=== PATIENT | female | born 1995 | race Caucasian/White ===

== ENCOUNTER 2018-04-21 19:00 | Emergency (ER) | END 2018-04-21 21:56 | disposition home or self-care (01) ==

== ENCOUNTER 2018-06-18 16:27 | Emergency (ER) | END 2018-06-18 19:05 | disposition home or self-care (01) ==

== ENCOUNTER 2018-10-22 13:47 | Inpatient (IN) | payer BC ==
[~2018-10-22] VITALS: Ht 160 cm; Wt 74.7 kg
[~2018-10-22 13:47] MED LIST: ACET500C5 PO; CEPH-443 PO; METO10TA92 PO; NITR-58 PO
--- NOTE | 2018-10-22 17:20 | HP ---
Date/Time of Note Date/Time of Note DATE: 10/22/18 TIME: 17:10 OB - History Hx of Present Free Text/Dictation 10/22/2018 : 1 Para: 0 Spontaneous : 0 Therapeutic : 0 Care: Limited Care Other Concerns: 23-year-old with IUP at 34 weeks and 5 days and care at outside facility presents with complaint of nausea and vomiting and weakness. She denies any leaking of fluid, vaginal bleeding or decreased movement. Patient was noted to have wandering baseline during monitoring during NST and for that reason patient was kept for 24-hour observation. heart tracing with intermittent wandering baseline with good variability and accelerations. She denies any complication during her course. Past Family/Social History * Past Medical, Surgical, Family and Obstetric Histories reviewed from chart. OB Admission Exam Physical Exam HEENT: WNL Lungs: Clear Abdomen: WNL Extremities: Normal Cervical Dilatation: None Effacement: 0% Station: -2 Membranes: Intact Heart Rate: 130's Accelerations: Accelerations Present (increased variability , wondering baseline noted down to the 80s with good variability and acceleration ) Varibility: Marked Contractions on Admission: >10 Minutes Apart Intensity: Mild OB Assessment/Plan Other Assessment: IUP at 21 weeks care at outside facility, will be obtained Nausea and vomiting,, resolved. Tolerated PO challenge. Denies any fever or chills or GI symptoms. Wandering baseline and heart tracing, with marked variability and acceleration baseline at times at 90s. But improved to 120s She will be kept for observation for 24 hours Will be monitored closely Consider obtaining her records Ultrasound for estimated weight, growth biophysical profile and, JEREMY CAPUTO MD Oct 22, 2018 17:20
[2018-10-22 17:49] VITALS: Ht 160 cm; Wt 74.7 kg
[2018-10-22] MEDS: LACTATED RINGER'S 1,000 ML IV SCH ×2 (19:04→22:08)
[2018-10-23] MEDS: LACTATED RINGER'S 1,000 ML IV SCH ×2 (05:57→11:37)
[2018-10-23] MEDS ORDERED: PRENATAL VITAMIN PO SCH (09:00)
[2018-10-23] MEDS ORDERED: FERROUS SULFATE (EC) 325 MG TAB PO SCH (09:00)
--- NOTE | 2018-10-23 19:10 | PD.PPDC ---
[employer] Discharge Instruction Diagnosis [id number] Final Diagnosis: Ltpxf4b IUP 34w4d Condition Gjeui3Ap Patient Condition: Wafkl7f Stable Diet Kbukc4Li Diet: Tsaqs9b Resume Regular Diet Activity/Restrictions [id number] Activity: Ggjem8u Normal Activity May Shower Follow-up Provider Information: f/u with her OB CATHERINE TRINIDAD MD Oct 23, 2018 19:10
== END 2018-10-23 20:00 | disposition home or self-care (01) | DRG 833 ==
LOC: L-D 13:47 → OBT 13:47 → L-D 16:00 → OBT 16:00 → L-D 16:44 → PP1 19:56
PROVIDERS: ADMIT Obstetrics & Gynecology Obstetrics; ATTEND Obstetrics & Gynecology Obstetrics
DX: O21.9 Vomiting of pregnancy, unspecified (principal); O26.893 Other specified pregnancy related conditions, third trimester; Z3A.34 34 weeks gestation of pregnancy
CPT/HCPCS: 76815; 76818; 80053; 81001; 85025; 87086; G0463; J7120

== ENCOUNTER 2018-12-31 23:40 | Emergency (ER) | payer BC ==
[~2018-12-31] VITALS: Ht 157.5 cm; Wt 63.7 kg
[2019-01-01 00:05] VITALS: Ht 157.5 cm; Wt 63.7 kg
[2019-01-01 01:51] VITALS: BP 112/56; PULSE 79; RESP 18
[2019-01-01] MEDS ORDERED: DIC250 PO (02:10)
[2019-01-01] MEDS ORDERED: ACET500C5 PO (02:10)
--- NOTE | 2019-01-01 02:14 | ERD ---
ER Documentation Chief Complaint Chief Complaint L breast pain/swelling, fever, chills, X 2 days. 4 wks HPI Patient is a 23-year-old female, presents the ER for concerns of left breast pain x2 days. Patient is currently breast-feeding her daughter who is 4 weeks old. Patient states that she is having chills and low-grade temperature, T-max of 100.1 Fahrenheit. Patient reports taking Tylenol for symptoms. Patient states her breast is feel full and tender. Patient denies any bleeding or discharge. Patient is currently pumping. Denies any chest pain, shortness of breath, left upper extremity pain, nausea, vomiting or LOC. ROS All systems reviewed and are negative except as per history of present illness. Medications Home Meds Active Scripts Acetaminophen* (Tylophen*) 500 Mg Capsule, 1 CAP PO Q6H PRN for PAIN AND OR ELEVATED TEMP, #20 CAP Prov:JOHNNIE LLOYD PA-C 01/01/19 Dicloxacillin Sodium* (Dynapen*) 250 Mg Cap, 500 MG PO QID for 10 Days, CAP Prov:JOHNNIE LLOYD PA-C 01/01/19 Allergies Allergies: Coded Allergies: No Known Allergies (Verified Allergy, Mild, 10/22/18) PMhx/Soc History of Surgery: Yes (ovarian sx) Anesthesia Reaction: No Hx Neurological Disorder: No Hx Respiratory Disorders: Yes (asthma) Hx Cardiac Disorders: No Hx Psychiatric Problems: No Hx Miscellaneous Medical Probl: No Hx Alcohol Use: No Hx Substance Use: No Hx Tobacco Use: No FmHx Family History: No diabetes Physical Exam Vitals Vital Signs Date Temp Pulse Resp B/P (MAP) Pulse Ox O2 O2 Flow FiO2 Time Delivery Rate 01/01/19 98.7 79 18 112/56 100 Room Air 01:51 (74) 01/01/19 97.8 86 18 99 00:05 Physical Exam GENERAL: Well-developed, well-nourished female. Appears in no acute distress. HEAD: Normocephalic, atraumatic. EYES: Pupils are equally reactive bilaterally. EOMs grossly intact. No conjunctival erythema. ENT: Moist mucous membranes. No uvula deviation. No kissing tonsils. NECK: Supple. No meningismus. Normal range of motion of the neck. LUNG: Clear to auscultation bilaterally. No rhonchi, wheezing, rales or coarse breath sounds. HEART: Regular rate and rhythm. No murmurs, rubs or gallops. L BREAST: No nipple discharge or bleeding. Tenderness and fullness noted in the 9:00 through 11 o'clock position. Mild erythema noted in this region as well. No streaking. EXTREMITIES: Equal pulses bilaterally. No peripheral clubbing, cyanosis or edema. No unilateral leg swelling. NEUROLOGIC: Alert and oriented. Moving all four extremities without any difficulty. Normal speech. Steady gait. SKIN: Normal color. Warm and dry. No rashes or lesions. Procedures/MDM MEDICAL DECISION MAKING: Patient is a 23-year-old female, currently breast-feeding her daughter, presents the ER for concerns of a left sided breast pain and low-grade fevers x1 days. Vital signs were reviewed. Patient is afebrile. Patient was not hypoxic. Patient was hemodynamically stable. Physical exam vitals are concerning for mastitis. Patient will be treated with an box. Patient advised to continue breast- feeding/pumping. Low suspicion for ACS, deep space infection, abscess formation, sepsis. Patient was nontoxic, [id number] prior to discharge. DISCHARGE: At this time, patient is stable for discharge and outpatient management. I have instructed the patient to follow-up with his/her primary care physician in 1-2 days. I have discussed with the patient the possibility of needing to see a specialist for further workup and imaging studies if symptoms persist. I have instructed the patient to promptly return to the ER for any new or worsening symptoms including increased pain, fever, nausea, vomiting, weakness or LOC. The patient and/or family expressed understanding of and agreement with this plan. All questions were answered. Home care instructions were provided. Disclaimer: Inadvertent spelling and grammatical errors are likely due to EHR/dictation software use and do not reflect on the overall quality of patient care. Also, please note that the electronic time recorded on this note does not necessarily reflect the actual time of the patient encounter. Departure Diagnosis: Primary Impression: Mastitis Condition: Fair Patient Instructions: Mastitis Referrals: COMM[facility]ITY CLIN[facility] YOU HAVE RECEIVED A MEDICAL SCREENING EXAM AND THE RESULTS INDICATE THAT YOU DO NOT HAVE A CONDITION THAT REQUIRES URGENT TREATMENT IN THE EMERGENCY DEPARTMENT. FURTHER EVALUATION AND TREATMENT OF YOUR CONDITION CAN WAIT UNTIL YOU ARE SEEN IN YOUR DOCTORS OFFICE WITHIN THE NEXT 1-2 DAYS. IT IS YOUR RESPONSIBILITY TO MAKE AN APPOINTMENT FOR FOLOW-UP CARE. IF YOU HAVE A PRIMARY DOCTOR --you should call your primary doctor and schedule an appointment IF YOU DO NOT HAVE A PRIMARY DOCTOR YOU CAN CALL OUR PHYSICIAN REFERRAL HOTLINE AT IF YOU CAN NOT AFFORD TO SEE A PHYSICIAN YOU CAN CHOSE FROM THE FOLLOWING [facility] [address] [facility] [address] [facility] [address] [facility] [address] [facility] [address] [facility]. [facility] [address] [facility]. [facility] YOU HAVE RECEIVED A MEDICAL SCREENING EXAM AND THE RESULTS INDICATE THAT YOU DO NOT HAVE A CONDITION THAT REQUIRES URGENT TREATMENT IN THE EMERGENCY DEPARTMENT. FURTHER EVALUATION AND TREATMENT OF YOUR CONDITION CAN WAIT UNTIL YOU ARE SEEN IN YOUR DOCTORS OFFICE WITHIN THE NEXT 1-2 DAYS. IT IS YOUR RESPONSIBILITY TO MAKE AN APPOINTMENT FOR FOLOW-UP CARE. IF YOU HAVE A PRIMARY DOCTOR --you should call your primary doctor and schedule and appointment IF YOU DO NOT HAVE A PRIMARY DOCTOR YOU CAN CALL OUR PHYSICIAN REFERRAL HOTLINE AT . IF YOU CAN NOT AFFORD TO SEE A PHYSICIAN YOU CAN CHOSE FROM THE FOLLOWING [facility] INSTITUTIONS: [facility] [address] [place] [address] [facility] [address] [place] [address] [facility] [address] [place] [address] Additional Instructions: Call your primary care doctor TOMORROW for an appointment during the next 1-2 days.See the doctor sooner or return here if your condition worsens before your appointment time. JOHNNIE LLOYD PA-C Jan 01, 2019 02:14
== END 2019-01-01 02:26 | disposition home or self-care (01) ==
LOC: FTE 23:40
DX: O99.89 Other specified diseases and conditions complicating pregnancy, childbirth and the puerperium (principal); O91.22 Nonpurulent mastitis associated with the puerperium
CPT/HCPCS: 99283

== ENCOUNTER 2019-03-28 23:10 | Emergency (ER) | payer BC ==
[~2019-03-28] VITALS: Ht 157.5 cm; Wt 65.6 kg
[~2019-03-28 23:10] MED LIST changes: +BENZ-6 PO; -CEPH-443 PO; +CETI10CA PO; +CYCL10TA7 PO; +DIC250 PO; +FLUT9.9S NASAL; +GUAI5SYR2 PO; -METO10TA92 PO; +NAPR-985 PO; -NITR-58 PO
[2019-03-28 23:15] VITALS: BP 109/69; PULSE 101; RESP 20; Ht 157.5 cm; Wt 65.6 kg
== END 2019-03-29 00:13 | disposition home or self-care (01) ==
LOC: FTE 23:10
DX: J06.9 Acute upper respiratory infection, unspecified (principal); J45.909 Unspecified asthma, uncomplicated
CPT/HCPCS: 99282